=== PATIENT | female | born 1965 | race Caucasian/White ===

== ENCOUNTER 2019-09-24 11:42 | Emergency (ER) | payer SELFPAY ==
--- NOTE | 2019-09-24 12:21 | Event Note ---
ED Screening Note Date of service: 09/24/19 ED Screening Note: This initial assessment/diagnostic orders/clinical plan/treatment(s) is/are subject to change based on patients health status, clinical progression and re- assessment by fellow clinical providers in the ED. Further treatment and workup at subsequent clinical providers discretion. Patient/guardian urged not to elope from the ED as their condition may be serious if not clinically assessed and managed. Initial orders include:
[2019-09-24] MEDS ORDERED: ONDANSETRON 4 MG/2 ML INJ IV ONE (12:23)
[2019-09-24] MEDS ORDERED: SODIUM CHLORIDE 0.9% 1000 ML 1,000 ML IV ONE ×2 (12:23→17:19)
--- NOTE | 2019-09-24 12:26 | Event Note ---
ED Screening Note Date of service: 09/24/19 Time: 12:26 ED Screening Note: 53 y/o female with no PMH comes in for chest pain, n/v weakness times 3 days. No able to eat or drink. This initial assessment/diagnostic orders/clinical plan/treatment(s) is/are subject to change based on patients health status, clinical progression and re- assessment by fellow clinical providers in the ED. Further treatment and workup at subsequent clinical providers discretion. Patient/guardian urged not to elope from the ED as their condition may be serious if not clinically assessed and managed. Initial orders include:
--- NOTE | 2019-09-24 12:52 | XRay Report ---
ABDOMEN 2 VIEW(S) INDICATION / CLINICAL INFORMATION: n/v chest pain. COMPARISON: None available. FINDINGS: TUBES / LINES: None. BOWEL GAS PATTERN: No significant abnormality. FREE AIR / EXTRALUMINAL GAS: None seen. ADDITIONAL FINDINGS: No significant additional findings. IMPRESSION: No significant abnormality. Signer Name: Jose Andersen Jr, MD Signed: 09/24/2019 12:48 PM Workstation Name: [id number]
--- NOTE | 2019-09-24 12:53 | XRay Report ---
CHEST 1 VIEW 09/24/2019 12:40 PM INDICATION / CLINICAL INFORMATION: chest pain. COMPARISON: None available. FINDINGS: SUPPORT DEVICES: None. HEART / MEDIASTINUM: No significant abnormality. LUNGS / PLEURA: There is a nodular opacity projecting over the right lower lung. There is no focal co nsolidation or pleural effusion. No pneumothorax. ADDITIONAL FINDINGS: No significant additional findings. IMPRESSION: 1. Small nodular opacity projecting over the right mid to lower lung. Further evaluation with chest C T recommended. Signer Name: Garry Mora MD Signed: 09/24/2019 12:48 PM Workstation Name: [id number]
--- NOTE | 2019-09-24 13:57 | Emergency Department Report ---
<IGNACIA FUNEZ - Last Filed: 09/24/19 19:16> ED General Adult HPI - General Chief complaint: Nausea/Vomiting/Diarrhea Stated complaint: NAUSEA/VOMIT Time Seen by Provider: 09/24/19 12:21 Source: patient Mode of arrival: Ambulatory Limitations: No Limitations - History of Present Illness Initial comments: This is a 53-year-old female that presents to the emergency room with nausea, vomiting, chest pain, dizziness, and weakness for 2 days. No significant past medical history. Patient denies recent travel outside of the country. She denies eating anything unusual other than [place] food which is what she usually eats. She denies fever, chills, abdominal pain, visual changes, headache, palpitations, or diarrhea. Onset/Timin -: days(s) Location: chest Radiation: non-radiation Severity scale (0 -10): 8 Quality: aching Consistency: intermittent Improves with: none Worsens with: none Associated Symptoms: nausea/vomiting, weakness. denies: confusion, chest pain, cough, diaphoresis, fever/chills, headaches, loss of appetite, malaise, rash, seizure, shortness of breath, syncope Treatments Prior to Arrival: none - Related Data Allergies Allergy/AdvReac Type Severity Reaction Status Date / Time No Known Allergies Allergy Unverified 09/24/19 11:49 ED Review of Systems Constitutional: denies: chills, fever Respiratory: denies: cough, shortness of breath, wheezing Cardiovascular: chest pain. denies: palpitations Gastrointestinal: nausea, vomiting. denies: abdominal pain, diarrhea Musculoskeletal: denies: back pain, joint swelling, arthralgia Skin: denies: rash, lesions Neurological: denies: headache, weakness, paresthesias Psychiatric: denies: anxiety, depression ED Past Medical Hx - Past Medical History Previous Medical History?: No - Surgical History Past Surgical History?: No - Social History Smoking Status: Never Smoker Substance Use Type: None ED Physical Exam - General Limitations: No Limitations General appearance: alert, in no apparent distress - Eye Eye exam: Present: normal appearance. Absent: scleral icterus, nystagmus, periorbital swelling, periorbital tenderness Pupils: Present: normal accommodation - ENT ENT exam: Present: mucous membranes moist - Respiratory Respiratory exam: Present: normal lung sounds bilaterally. Absent: respiratory distress, wheezes, rales, rhonchi, stridor, chest wall tenderness - Cardiovascular Cardiovascular Exam: Present: regular rate, normal rhythm. Absent: systolic murmur, diastolic murmur, rubs, gallop - GI/Abdominal GI/Abdominal exam: Present: soft, normal bowel sounds. Absent: distended, tenderness, guarding, rebound, rigid, organomegaly, mass - Neurological Exam Neurological exam: Present: alert, oriented X3 - Psychiatric Psychiatric exam: Present: normal affect, normal mood - Skin Skin exam: Present: warm, dry, intact, normal color. Absent: rash ED Course - Reevaluation(s) Reevaluation #1: 09/24/19 17:16 Consulted hospitalist for admission for Cardiac workup and observation. ED Medical Decision Making - Lab Data Result diagrams: 09/24/19 13:18 09/24/19 13:18 Lab Results 09/24/19 09/24/19 09/24/19 Range/Units 13:18 13:18 13:18 WBC 12.1 H (4.5-11.0) K/mm3 RBC 5.99 H (3.65-5.03) M/mm3 Hgb 10.2 (10.1-14.3) gm/dl Hct 34.0 (30.3-42.9) % MCV 57 L (79-97) fl MCH 17 L (28-32) pg MCHC 30 (30-34) % RDW 17.5 H (13.2-15.2) % Plt Count 373 (140-440) K/mm3 Lymph % (Auto) 18.5 (13.4-35.0) % [place] % (Auto) 7.3 (0.0-7.3) % Eos % (Auto) 0.1 (0.0-4.3) % Baso % (Auto) 0.7 (0.0-1.8) % Lymph # 2.2 (1.2-5.4) K/mm3 [place] # 0.9 H (0.0-0.8) K/mm3 Eos # 0.0 (0.0-0.4) K/mm3 Baso # 0.1 (0.0-0.1) K/mm3 Seg Neutrophils % 73.4 H (40.0-70.0) % Seg Neutrophils # 8.9 H (1.8-7.7) K/mm3 Sodium 134 L (137-145) mmol/L Potassium 3.0 L (3.6-5.0) mmol/L Chloride 83.5 L (98-107) mmol/L Carbon Dioxide 30 (22-30) mmol/L Anion Gap 24 mmol/L BUN 20 H (7-17) mg/dL Creatinine 1.3 H (0.7-1.2) mg/dL Estimated GFR 43 ml/min BUN/Creatinine Ratio 15 % Glucose 139 H (65-100) mg/dL Calcium 9.9 (8.4-10.2) mg/dL Total Bilirubin 0.50 (0.1-1.2) mg/dL AST 29 (5-40) units/L ALT 10 (7-56) units/L Alkaline Phosphatase 113 (35-129) units/L Troponin T < 0.010 (0.00-0.029) ng/mL Total Protein 8.5 H (6.3-8.2) g/dL Albumin 3.6 L (3.9-5) g/dL Albumin/Globulin Ratio 0.7 % Lipase 21 (13-60) units/L Urine Color (Yellow) Urine Turbidity (Clear) Urine pH (5.0-7.0) Ur Specific [place] (1.003-1.030) Urine Protein (Negative) mg/dL Urine Glucose (UA) (Negative) mg/dL Urine Ketones (Negative) mg/dL Urine Blood (Negative) Urine Nitrite (Negative) Urine Bilirubin (Negative) Urine Urobilinogen (<2.0) mg/dL Ur Leukocyte Esterase (Negative) Urine WBC (Auto) (0.0-6.0) /HPF Urine RBC (Auto) (0.0-6.0) /HPF U Epithel Cells (Auto) (0-13.0) /HPF Urine Mucus /HPF 09/24/19 Range/Units 15:42 WBC (4.5-11.0) K/mm3 RBC (3.65-5.03) M/mm3 Hgb (10.1-14.3) gm/dl Hct (30.3-42.9) % MCV (79-97) fl MCH (28-32) pg MCHC (30-34) % RDW (13.2-15.2) % Plt Count (140-440) K/mm3 Lymph % (Auto) (13.4-35.0) % [place] % (Auto) (0.0-7.3) % Eos % (Auto) (0.0-4.3) % Baso % (Auto) (0.0-1.8) % Lymph # (1.2-5.4) K/mm3 [place] # (0.0-0.8) K/mm3 Eos # (0.0-0.4) K/mm3 Baso # (0.0-0.1) K/mm3 Seg Neutrophils % (40.0-70.0) % Seg Neutrophils # (1.8-7.7) K/mm3 Sodium (137-145) mmol/L Potassium (3.6-5.0) mmol/L Chloride (98-107) mmol/L Carbon Dioxide (22-30) mmol/L Anion Gap mmol/L BUN (7-17) mg/dL Creatinine (0.7-1.2) mg/dL Estimated GFR ml/min BUN/Creatinine Ratio % Glucose (65-100) mg/dL Calcium (8.4-10.2) mg/dL Total Bilirubin (0.1-1.2) mg/dL AST (5-40) units/L ALT (7-56) units/L Alkaline Phosphatase (35-129) units/L Troponin T (0.00-0.029) ng/mL Total Protein (6.3-8.2) g/dL Albumin (3.9-5) g/dL Albumin/Globulin Ratio % Lipase (13-60) units/L Urine Color Yellow (Yellow) Urine Turbidity Clear (Clear) Urine pH 7.0 (5.0-7.0) Ur Specific [place] 1.023 (1.003-1.030) Urine Protein 30 mg/dl (Negative) mg/dL Urine Glucose (UA) Neg (Negative) mg/dL Urine Ketones Neg (Negative) mg/dL Urine Blood Neg (Negative) Urine Nitrite Neg (Negative) Urine Bilirubin Neg (Negative) Urine Urobilinogen < 2.0 (<2.0) mg/dL Ur Leukocyte Esterase Sm (Negative) Urine WBC (Auto) 4.0 (0.0-6.0) /HPF Urine RBC (Auto) 6.0 (0.0-6.0) /HPF U Epithel Cells (Auto) 4.0 (0-13.0) /HPF Urine Mucus 1+ /HPF - EKG Data -: No EKG Interpreted by Me (EKG interpreted by attending) EKG shows normal: sinus rhythm Rate: normal - Radiology Data Radiology results: report reviewed CHEST 1 VIEW 09/24/2019 12:40 PM INDICATION / CLINICAL INFORMATION: chest pain. COMPARISON: None available. FINDINGS: SUPPORT DEVICES: None. HEART / MEDIASTINUM: No significant abnormality. LUNGS / PLEURA: There is a nodular opacity projecting over the right lower lung. There is no focal consolidation or pleural effusion. No pneumothorax. ADDITIONAL FINDINGS: No significant additional findings. IMPRESSION: 1. Small nodular opacity projecting over the right mid to lower lung. Further evaluation with chest CT recommended. ABDOMEN 2 VIEW(S) INDICATION / CLINICAL INFORMATION: n/v chest pain. COMPARISON: None available. FINDINGS: TUBES / LINES: None. BOWEL GAS PATTERN: No significant abnormality. FREE AIR / EXTRALUMINAL GAS: None seen. ADDITIONAL FINDINGS: No significant additional findings. IMPRESSION: No significant abnormality. - Medical Decision Making This is a 53 y.o. female that presents with chest pain, nausea, vomiting, and vertigo. VSS. No significant past medical history. Labs, EKG, and chest x-ray are obtained. 1. Small nodular opacity projecting over the right mid to lower lung. Further evaluation with chest CT recommended. Dehydration. Given potassium supplement, IV fluids, and antiemetic. A CT was ordered but unsuccessful IV site. Consulted attending Dr. Laws who advised admission for cardiac monitoring. Consulted hospitalist Dr. Meneses for admission. Admit for continued cardiac monitoring and trending of troponins as well as further evaluation for potential inpatient stress testing vs cardiac catheterization and coronary angiography. Chart signed to Dr. Myers pending labs and VQ scan. ED Disposition Clinical Impression: Acute kidney injury, Dehydration, Elevated d-dimer Chest pain Qualifiers: Chest pain type: unspecified Qualified Code(s): R07.9 - Chest pain, unspecified Nausea and vomiting Qualifiers: Vomiting type: unspecified Vomiting Intractability: non-intractable Qualified Code(s): R11.2 - Nausea with vomiting, unspecified Disposition: -09 OP ADMIT IP TO THIS HOSP Condition: Stable Instructions: Chest Pain (ED) <HUAN MYERS - Last Filed: 09/24/19 20:36> ED Review of Systems ROS: Stated complaint: NAUSEA/VOMIT Other details as noted in HPI ED Course Vital Signs 09/24/19 09/24/19 09/24/19 12:20 15:00 18:28 Temperature 97.7 F Pulse Rate 91 H 80 Respiratory 20 18 Rate Blood Pressure 128/65 123/62 O2 Sat by Pulse 100 99 96 Oximetry ED Medical Decision Making - Lab Data Result diagrams: 09/24/19 13:18 09/24/19 13:18 - Medical Decision Making atient: JULIANNA ALANIS MR #: [id number] : 1965 Acct:[id number] Age/Sex: 53 / F ADM Date: 09/24/19 Loc: ED Attending Dr: Ordering Physician: HUAN MYERS MD Date of Service: 09/24/19 Procedure(s): NM lung scan perf/vent Accession Number(s): [id number] cc: HUAN MYERS MD Indication: Chest pain with elevated d-dimer TECHNICAL DATA: Inhaled administration followed by immediate static images of chest in multiple projections coordinated with breathing instructions. Followed by immediate static images of chest in multiple projections post I.V. injection. 1 millicuries of 133 Xenon is administered by inhalation. Pulmonary wash-in, equilibrium, and washout phases are performed. Then, 5.6 millicuries of 99m Tc MAA is administered intravenously. FINDINGS: The ventilation scan shows mild air trapping bilaterally with small ventilation defects bilaterally.. The perfusion scan demonstrates homogeneous uptake with small subsegmental defects throughout both lungs. No segmental defect is noted. IMPRESSION: Intermediate probability for pulmonary thromboembolism. Signer Name: Angela Chávez MD Signed: 09/24/2019 8:16 PM Workstation Name: [id number] Transcribed By: JR Dictated By: Angela Chávez MD Electronically Authenticated By: Angela Chávez MD Signed Date/Time: 09/24/192015 Patient is a 53-year-old [place] female who presented with nausea vomiting and also complains chest discomfort as well. Chest discomfort in this patient could be from several diagnoses. The patient's differential acute coronary syndrome of atypical nature, pulmonary embolus, esophagitis, GERD, chest wall pain, pneumonia, sarcoidosis oral possibilities. Patient has had 2 negative troponins here in the emergency department making acute OK is less likely. Patient's d- dimer is slightly elevated. Patient's GFR was low and the patient could not receive a CT angiogram of the chest. VQ scan was performed which showed a intermediate probability for pulmonary embolus. Patient's has no history of any renal insufficiency and likely has some hydration causing some acute renal injury. Patient was hydrated and given potassium so supplement for her hypokalemia. Patient to be admitted to the hospitalist service for further management. Critical care attestation.: If time is entered above; I have spent that time in minutes in the direct care of this critically ill patient, excluding procedure time. ED Disposition Is pt being admited?: Yes Does the pt Need Aspirin: No Time of Disposition: 20:36
[2019-09-24 14:13] LABS: Basophils # (Auto) 0.1 K/mm3 (0.0-0.1); Basophils % (Auto) 0.7 % (0.0-1.8); Eosinophils % (Auto) 0.1 % (0.0-4.3); Lymphocytes # (Auto) 2.2 K/mm3 (1.2-5.4); Lymphocytes % (Auto) 18.5 % (13.4-35.0); Mean Corpuscular HGB Conc 30 % (30-34); Monocytes # (Auto) 0.9 K/mm3 (0.0-0.8); Monocytes % (Auto) 7.3 % (0.0-7.3); Platelet Count 373 K/mm3 (140-440); Red Blood Count 5.99 M/mm3 (3.65-5.03); Red Cell Distribution Width 17.5 % (13.2-15.2)
[2019-09-24 14:28] LABS: Hemoglobin 10.2 gm/dl (10.1-14.3); Mean Corpuscular Volume 57 fl (79-97)
[2019-09-24 14:37] LABS: Albumin 3.6 g/dL (3.9-5); Calcium 9.9 mg/dL (8.4-10.2)
[2019-09-24] MEDS ORDERED: POTASSIUM CHLORIDE ER 20 MEQ TAB PO ONE (14:42)
[2019-09-24 15:56] LABS: Bilirubin,Urine NEG (Negative); Blood,Urine NEG (Negative); Color,Urine Yellow (Yellow); Mucus,Urine 1+ /HPF; Urobilinogen,Urine < 2.0 mg/dL (<2.0)
--- NOTE | 2019-09-24 17:17 | History and Physical Report ---
Medications and Allergies Allergies Allergy/AdvReac Type Severity Reaction Status Date / Time No Known Allergies Allergy Unverified 09/24/19 11:49 Exam - Constitutional Vitals: Temp Pulse Resp BP Pulse Ox 97.7 F 91 H 18 128/65 99 09/24/19 12:20 09/24/19 12:20 09/24/19 15:00 09/24/19 12:20 09/24/19 15:00 Results - Labs CBC & Chem 7: 09/24/19 13:18 09/24/19 13:18 Labs: Abnormal lab results 09/24/19 09/24/19 Range/Units 13:18 13:18 WBC 12.1 H (4.5-11.0) K/mm3 RBC 5.99 H (3.65-5.03) M/mm3 MCV 57 L (79-97) fl MCH 17 L (28-32) pg RDW 17.5 H (13.2-15.2) % [place] # 0.9 H (0.0-0.8) K/mm3 Seg Neutrophils % 73.4 H (40.0-70.0) % Seg Neutrophils # 8.9 H (1.8-7.7) K/mm3 Sodium 134 L (137-145) mmol/L Potassium 3.0 L (3.6-5.0) mmol/L Chloride 83.5 L (98-107) mmol/L BUN 20 H (7-17) mg/dL Creatinine 1.3 H (0.7-1.2) mg/dL Glucose 139 H (65-100) mg/dL Total Protein 8.5 H (6.3-8.2) g/dL Albumin 3.6 L (3.9-5) g/dL
[2019-09-24 18:30] VITALS: BP 123/62
--- NOTE | 2019-09-24 20:20 | Nuclear Medicine Report ---
Indication: Chest pain with elevated d-dimer TECHNICAL DATA: Inhaled administration followed by immediate static images of chest in multiple projections coordinat ed with breathing instructions. Followed by immediate static images of chest in multiple projections post I.V. injection. 1 millicuries of 133 Xenon is administered by inhalation. Pulmonary wash-in, equilibrium, and washout phases are performed. Then, 5.6 millicuries of 99m Tc MAA is administered intravenously. FINDINGS: The ventilation scan shows mild air trapping bilaterally with small ventilation defects bilaterally.. The perfusion scan demonstrates homogeneous uptake with small subsegmental defects throughout both lizeth ngs. No segmental defect is noted. IMPRESSION: Intermediate probability for pulmonary thromboembolism. Signer Name: Angela Chávez MD Signed: 09/24/2019 8:16 PM Workstation Name: [id number]
== END 2019-09-24 21:20 | disposition left against medical advice (07) ==
LOC: ED 11:42
DX: E86.0 Dehydration (principal); R07.89 Other chest pain; R79.89 Other specified abnormal findings of blood chemistry; N17.9 Acute kidney failure, unspecified
CPT/HCPCS: 36415; 71045; 74018; 78582; 80053; 81001; 83690; 84484; 85025; 85379; 93005; 93010; 96361; 96374; 99284; A9540; A9558; J2405; J7030